=== PATIENT | male | born 1995 | race Caucasian/White ===

== ENCOUNTER 2016-10-15 22:57 | Emergency (ER) | payer OTHER ==
[2016-10-15 23:05] VITALS: TEMP 37; O2SAT 93
[2016-10-16 00:24] LABS: BLOOD UREA NITROGEN 10 mg/dl (7-18); BUN/CREATININE RATIO 8.6 (10-20); CALCIUM 8.8 mg/dl (8.5-10.1); CARBON DIOXIDE 27 mmol/L (21-32); CHLORIDE 102 mmol/L (98-107); GLUCOSE 131 mg/dl (70-99); POTASSIUM 3.5 mmol/L (3.5-5.1); SODIUM 140 mmol/L (136-145)
--- NOTE | 2016-10-16 07:45 | EMERGENCY ROOM VISIT NOTE ---
ED Visit Note First contact with patient: 22:59 CHIEF COMPLAINT: Altered mental status from Alcohol overdose HISTORY OF PRESENT ILLNESS: This 20-year-old male patient presents to the emergency department via ambulance for evaluation of altered mental status, presumably from alcohol intoxication. The patient was initially found outside the [facility] by police this evening. The patient was belligerent and acting intoxicated. There was evidently a physical altercation with police , and the patient was placed in handcuffs and brought to the department for examination. The patient admits to drinking alcohol this evening. He denies drug use or smoking. He does not have significant pain or injury. He does not report taking medication on a regular basis. He is very cooperative here in the emergency department. REVIEW OF SYSTEMS: Review of systems was somewhat limited secondary to patient' s presumed alcohol intoxication status. Review of systems was performed to the best of our ability and reperformed as the patient began to sober up. All other systems were reviewed and are negative. ALLERGIES: See EMR MEDICATIONS: See EMR PMH: No chronic medical disease SOCIAL HISTORY: [employer] student who lives locally. PHYSICAL EXAM VITALS: Vitals are noted on the nurse's note and reviewed by myself. Vital signs stable. GENERAL: White male, who is in no acute distress and resting comfortably. Patient is visibly altered and smells of alcohol. HEAD: Normocephalic atraumatic. EARS: External ear normal. External auditory canals clear, tympanic membranes pearly montero without erythema or effusion bilaterally. EYES: Pupils equal round and reactive to light and accommodation. Conjunctivae without injection, sclerae without icterus. Extraocular movements intact. NOSE: Patent, turbinates without inflammation or discharge. MOUTH: Mucous membranes moist. Tonsils are not enlarged. Pharynx without erythema, blood, vomitus, or exudate. Uvula midline. Airway patent. NECK: Supple without nuchal rigidity. No lymphadenopathy. Cervical spine is nontender. HEART: Regular rate and rhythm without murmurs gallops or rubs. LUNGS: Clear to auscultation bilaterally without wheezes, rales or rhonchi. No retractions or accessory muscle use. ABDOMEN: Positive normal bowel sounds x 4. Soft, nontender, without masses or organomegaly. No guarding or rebound tenderness. MUSCULOSKELETAL: No muscle atrophy, erythema, or edema noted. Gross motor function intact to all extremities. NEURO: Patient was alert to person but not place or time. They appear with altered mental status. SKIN: The skin was without rashes, erythema, edema, or bruising. No Tenting of the skin. EMERGENCY DEPARTMENT COURSE: Physical exam and history was performed. Nursing notes and EMR were reviewed. The patient appears to be altered on my examination. I suspect this is from an alcohol overdose. Conservative care measures and aspiration precautions were instituted. The patient was placed on monitor and storage bin tender and watched during the patient's stay. The patient was placed in a prone position. Blood work was obtained and was reviewed. The patient's blood alcohol level was 314. This appears to be the primary cause of the altered status. Patient was reevaluated multiple times throughout the course of their emergency department stay. Over time the patient did sober up and was able to talk, walk , and drink fluids without difficulty. The patient was felt stable for discharge home. The patient was given alcohol intoxication handouts. The patient was discharged home in stable condition with a sober ride. Differential diagnosis: Etiologies such as alcohol intoxication, metabolic, infection, hypoglycemia, electrolyte abnormalities, cardiac sources, intracerebral event, toxicologic, neurologic, as well as others were entertained. DIAGNOSIS: Acute alcohol intoxication Current/Historical Medications Unable to Obtain Active Prescriptions or Reported Meds Vital Signs Date Time Temp Pulse Resp B/P Pulse Ox O2 Delivery O2 Flow Rate FiO2 10/16/16 06:35 89 18 119/85 95 Room Air 10/16/16 05:00 135 18 101/50 93 Room Air 10/16/16 03:04 97 10/16/16 02:48 109 18 96/50 92 Room Air 10/16/16 00:46 121 16 137/69 92 Room Air 10/15/16 23:05 93 Room Air 10/15/16 23:05 37.0 136 16 123/78 93 Room Air 10/15/16 23:05 129 Laboratory Results 10/15/16 23:54 Test 10/15/16 23:54 Anion Gap 11.0 mmol/L (3-11) Estimated GFR () 99.6 Estimated GFR (Non- 85.9 BUN/Creatinine Ratio 8.6 (10-20) Calcium Level 8.8 mg/dl (8.5-10.1) Ethyl Alcohol mg/dL 314.0 mg/dl (0-3) Departure Information Prescriptions Unable to Obtain Active Prescriptions or Reported Meds Patient Instructions My [facility]
[2016-10-16 07:55] VITALS: BP 106/65; PULSE 94; O2SAT 97
== END 2016-10-16 08:00 | disposition home or self-care (01) ==
LOC: C.EDA 22:59
DX: F10.129 Alcohol abuse with intoxication, unspecified (principal)

== ENCOUNTER 2017-11-02 02:26 | Emergency (ER) | payer BC, OTHER ==
[~2017-11-02] VITALS: Ht 162.6 cm; Wt 55.8 kg
[2017-11-02 02:32] VITALS: Ht 162.6 cm; Wt 55.8 kg
--- NOTE | 2017-11-02 02:39 | EMERGENCY ROOM VISIT NOTE ---
History Report prepared by Kirti: Levi Prince Under the Supervision of: Dr. Christopher Sanchez M.D. First contact with patient: 02:27 Chief Complaint: ALCOHOL OVERDOSE Stated Complaint: ALCOHOL OVERDOSE History of Present Illness The patient is a 21 year old male who presents to the Emergency Room with an alcohol overdose. EMS states the patient was walking downtown barefoot. The patient denies any pain and refuses to answer any questions. He states "I am Adonay." HPI limited secondary to the patient's alcohol intoxication. Source of History: EMS History Limited By: intoxication (alcohol) Review of Systems ROS limited secondary to the patient's alcohol intoxication. Past Medical & Surgical Unobtainable secondary to the patient's alcohol intoxication. Family History Unobtainable secondary to the patient's alcohol intoxication. Social History Smoking Status: Never Smoker Alcohol Use: occasionally Drug Use: none Occupation Status: [employer] student Current/Historical Medications Unable to Obtain Active Prescriptions or Reported Meds Allergies Coded Allergies: No Known Allergies (Unverified , 04/24/17) Physical Exam Vital Signs Date Time Temp Pulse Resp B/P (MAP) Pulse Ox O2 Delivery O2 Flow Rate FiO2 11/02/17 06:08 71 11/02/17 05:47 100 20 117/52 96 Room Air 11/02/17 04:56 72 20 90/55 96 Room Air 11/02/17 03:46 106 20 94/46 96 Room Air 11/02/17 02:57 94 Room Air 11/02/17 02:39 110 11/02/17 02:32 36.8 96 20 129/80 94 Room Air Physical Exam GENERAL: Patient is heavily intoxicated. Smells of alcohol. Well appearing and in no acute distress. Occasionally blurting out words. HEAD: No evidence of Trauma. AT/NC EYES: Injected conjunctiva. Normal EOM. Pupils equal/reactive. ENT: Mucous membranes moist, no nasal congestion. NECK: No step-offs, no adenopathy, no meningismus, trachea is midline. LUNGS: No dyspnea. Clear to auscultation and equal bilaterally. No wheeze, no rhonchi. HEART: Regular rate and rhythm. No murmurs, rubs, gallops appreciated. GI: Abdomen soft, nontender, no peritonitis. Bowel sounds positive. No masses appreciated. BACK: No midline tenderness, no stepoffs, no CVA tenderness EXTREMITIES: Normal motion all extremities, no cyanosis, no edema. Slight abrasion of the left elbow and right great toe. NEUROLOGIC: Intoxicated. Awake and looking around the room. No acute motor or sensory deficits, no focal weakness, cranial nerves grossly intact. SKIN: No rash, no jaundice, no diaphoresis. Medical Decision & Procedures Laboratory Results 11/02/17 02:34 Test 11/02/17 02:34 Anion Gap 9.0 mmol/L (3-11) Est Creatinine Clear Calc Drug Dose 91.5 ml/min Estimated GFR () 123.3 Estimated GFR (Non- 106.4 BUN/Creatinine Ratio 8.1 (10-20) Calcium Level 8.2 mg/dl (8.5-10.1) Ethyl Alcohol mg/dL 375.0 mg/dl (0-3) Laboratory results as reviewed by me. ED Course 0227: The patient was evaluated in room B07. A complete history and physical exam was performed. 0332: I reevaluated the patient. He is sleeping and in no distress The patient will be discharged when he is sober and oriented. Medical Decision Differential: Alcohol Intoxication, Drug Intoxication, Electrolyte Abnormality, Trauma, Intracranial Event, Toxicological, Excited Delirium, Serotonin Syndrome , amongst other pathologies entertained. 21 yr old intoxicated male brought in by EMS after being found intoxicated walking down the street barefoot. Other than some abrasions patient with no evidence nor history for trauma. Protecting airway and breathing comfortably throughout ED stay. EtOH positive. Monitored and discharged when awake, alert , oriented and denies any complaints. Medication Reconcilliation Current Medication List: was personally reviewed by me Blood Pressure Screening Patient's blood pressure: Normal blood pressure Blood pressure disposition: Did not require urgent referral Impression Primary Impression: Alcohol abuse Additional Impressions: Alcohol intoxication Toe abrasion Abrasion of elbow, left Scribe Attestation The scribe's documentation has been prepared under my direction and personally reviewed by me in its entirety. I confirm that the note above accurately reflects all work, treatment, procedures, and medical decision making performed by me. Departure Information Dispostion Home / Self-Care Prescriptions Unable to Obtain Active Prescriptions or Reported Meds Referrals [facility] (PCP) Patient Instructions My [facility] Additional Instructions You were evaluated in emergency department for intoxication. This is a sign of Alcohol Abuse and should not be taken lightly. You had a blood alcohol level that was significantly elevated. Over the next 24 hours keep well hydrated and eat light meals. Don't drink any more alcohol. This is important. Please discuss this visit with your Primary Care Provider and/or your loved ones. Unless an exceptional circumstance, the Hospital DOES NOT contact anyone DURING your visit, nor is your Protected Medical Information released to anyone without your approval/request. This means we do not contact your Parents, the Police, etc. However, you will likely receive a bill from the Hospital and/or your Insurance company, which will usually be sent to the Primary Policy Curiel (often one's Parents). If the Police were involved you will likely be cited for public intoxication. Please contact either [facility] Police or the [place] Police for further information. Call 911 or return to Emergency Department if you develop: Passing out, difficulty breathing, many episodes of vomiting, blood in vomit or stool, abdominal pain, fevers, or other severe symptoms. We are always here to help if you feel you need further evaluation or treatment. Problem Qualifiers
[2017-11-02 02:57] VITALS: O2SAT 94
[2017-11-02 03:08] LABS: CALCIUM 8.2 mg/dl (8.5-10.1); POTASSIUM 3.3 mmol/L (3.5-5.1)
[2017-11-02 09:26] VITALS: BP 99/53; PULSE 97; TEMP 36.8; O2SAT 94
== END 2017-11-02 09:27 | disposition home or self-care (01) ==
LOC: EDBD 02:26 → C.EDB 02:27
DX: F10.129 Alcohol abuse with intoxication, unspecified (principal); S90.411A Abrasion, right great toe, initial encounter; S50.312A Abrasion of left elbow, initial encounter; X58.XXXA Exposure to other specified factors, initial encounter